=== PATIENT | female | born 1985 | race Asian ===

== ENCOUNTER 2021-05-19 23:22 | Emergency (ER) | payer OTHER ==
[~2021-05-19] VITALS: Ht 154.9 cm; Wt 61.3 kg
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
[2021-05-19 23:57] LABS: BASO # 0.1 x10^3/uL (0.0-0.2); BASO % 1 % (0-3); EOS # 0.3 x10^3/uL (0.0-0.7); EOS % 4 % (0-3); HEMATOCRIT 41.1 % (36.0-47.0); HEMOGLOBIN 14.3 g/dL (12.0-15.5); LYMPH # 2.7 x10^3/uL (1.0-4.8); LYMPH % 34 % (24-48); MEAN CORPUSCULAR HEMOGLOBIN 33 pg (25-35); MEAN CORPUSCULAR HGB CONC 35 g/dL (31-37); MEAN CORPUSCULAR VOLUME 96 fL (79-100); MONO # 0.5 x10^3/uL (0.0-1.1); MONO % 6 % (0-9); NEUT # 4.4 x10^3uL (1.8-7.7); NEUT % 55 % (31-73); PLATELET COUNT 286 x10^3/uL (140-400); RED BLOOD COUNT 4.29 x10^6/uL (3.50-5.40); RED CELL DISTRIBUTION WIDTH 13.1 % (11.5-14.5)
[2021-05-20] MEDS ORDERED: IV RINGERS SOLUTION,LACTATED 1,000 ML IV SCH
[2021-05-20] MEDS ORDERED: ASPIRIN 325 MG TABLET PO ONE
[2021-05-20 00:22] LABS: CALCIUM 8.5 mg/dL (8.5-10.1); CREATININE 0.6 mg/dL (0.6-1.0); GFR 112.5; POTASSIUM 3.6 mmol/L (3.5-5.1)
[2021-05-20 00:35] LABS: ALBUMIN 4.2 g/dL (3.4-5.0); DIRECT BILIRUBIN 0.1 mg/dL (0.0-0.2); MAGNESIUM 2.1 mg/dL (1.8-2.4); TOTAL BILIRUBIN 0.4 mg/dL (0.2-1.0); TOTAL PROTEIN 7.7 g/dL (6.4-8.2)
[2021-05-20 01:01] LABS: BARBITURATES NEG (NEG); BENZODIAZEPINES NEG (NEG); CANNABINOIDS NEG (NEG); COCAINE NEG (NEG); METHADONE NEG (NEG); OPIATES NEG (NEG); PHENCYCLIDINE NEG (NEG)
[2021-05-20 01:03] LABS: BILIRUBIN,URINE NEG (NEG); CLARITY,URINE CLEAR; COLOR,URINE YELLOW; GLUCOSE,URINE NEG (NEG)
[2021-05-20 01:04] LABS: U PREG PATIENT NEGATIVE (NEG)
[2021-05-20 01:04] LABS: BACTERIA,URINE FEW /HPF (0-FEW); NITRITE,URINE NEG (NEG); SQUAMOUS EPITHELIAL CELL,UR MOD /LPF; UROBILINOGEN,URINE 0.2 mg/dL (0.2 mg/dL)
[2021-05-20 01:05] LABS: AMPHETAMINE/METHAMPHETAMINE NEG (NEG)
[2021-05-20 01:26] VITALS: BP 105/62
[2021-05-20] MEDS ORDERED: KETOROLAC 30 MG/ML VIAL. IVP ONE (02:00)
--- NOTE | 2021-05-20 05:13 | RAD ---
INDICATION: Reason: cp / Spl. Instructions: / History: COMPARISON: None. FINDINGS: Single view of chest obtained. Mild density at the left chest base. No definite consolidation elsewhere in the lungs Cardiac silhouette is unremarkable. IMPRESSION: * Minimal opacity at the left lung base which could be secondary to overlap of soft tissue structure s but could obscure the region. No definite consolidation elsewhere in the lungs. Electronically signed by: Roberto Romero MD (05/20/2021 5:10 AM) [id number]
--- NOTE | 2021-05-20 06:24 | EKG ---
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
--- NOTE | 2021-05-20 06:25 | EKG ---
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
[2021-05-20 18:59] LABS: THYROID STIM HORMONE (TSH) 3.639 uIU/mL (0.358-3.740)
== END 2021-05-20 04:03 | disposition home or self-care (01) ==
LOC: ER 23:22
DX: R07.89 Other chest pain (principal)
CPT/HCPCS: 36415; 71045; 80048; 80061; 80076; 80307; 81001; 81025; 82550; 83690; 83735; 83880; 84443; 84484; 85025; 85379; 85610; 85730; 93005; 96361; 96374; 99285; J1885; J7120